=== PATIENT | male | born 1990 | race African-American/Black ===

== ENCOUNTER 2018-09-13 01:20 | Emergency (ER) | payer OTHER ==
[~2018-09-13] VITALS: Ht 170.2 cm; Wt 68.9 kg
[2018-09-13 01:20] VITALS: BP_SYST 145
[2018-09-13 03:00] VITALS: BP_SYST 136
== END 2018-09-13 03:00 ==
LOC: SED 01:20
DX: S00.211A Abrasion of right eyelid and periocular area, initial encounter (principal); V43.52XA Car driver injured in collision with other type car in traffic accident, initial encounter; Y93.89 Activity, other specified; Y92.410 Unspecified street and highway as the place of occurrence of the external cause; Y99.8 Other external cause status
CPT/HCPCS: 99283